=== PATIENT | female | born 1990 | race Caucasian/White ===

== ENCOUNTER 2016-12-12 15:16 | Emergency (ER) | payer OTHER ==
[2016-12-12 16:38] LABS: BASOPHIL % 0.4 % (0-2); PLATELET COUNT 143 x10^3mcL (130-400)
[2016-12-12 16:39] LABS: RED CELL DISTRIBUTION WIDTH 14.8 % (11.5-14.5)
[2016-12-12 16:41] LABS: CALCIUM 8.6 mg/dL (8.5-10.1); CARBON DIOXIDE 29.7 mmol/L (21-32); CHLORIDE SERUM 106 mmol/L (98-107); CREATININE SERUM 0.6 mg/dL (0.6-1.0); GFR1 > 60 mL/min; GLUCOSE SERUM 95 mg/dL (74-106); POTASSIUM SERUM 3.8 mmol/L (3.5-5.1); SODIUM SERUM 142 mmol/L (136-145)
[2016-12-12 16:55] LABS: ALBUMIN 3.8 g/dL (3.4-5.0); ALKALINE PHOSPHATASE 91 U/L (46-116); ALT/SGPT 20 U/L (14-59); AST/SGOT 16 U/L (15-37); BILIRUBIN TOTAL 0.23 mg/dL (0.20-1.00); FREE T4 1.02 ng/dL (0.76-1.46); TOTAL PROTEIN, SERUM 7.2 g/dL (6.4-8.2)
[2016-12-12 17:03] LABS: AMPHETAMINE QUAL UR NONE DETECTED (NEG <=1000)
[2016-12-12 17:30] VITALS: BP 106/75
== END 2016-12-12 17:30 | disposition home or self-care (01) ==
LOC: ED 15:16
PROVIDERS: Emergency Medicine
DX: D64.9 Anemia, unspecified (principal); R53.83 Other fatigue; N93.9 Abnormal uterine and vaginal bleeding, unspecified; R63.4 Abnormal weight loss; E07.9 Disorder of thyroid, unspecified
CPT/HCPCS: 36415; 84439

== ENCOUNTER 2018-05-07 21:12 | Emergency (ER) | payer MEDICAID ==
[~2018-05-07] VITALS: Ht 162.6 cm; Wt 69.9 kg
[2018-05-07 21:18] VITALS: Ht 162.6 cm; Wt 69.9 kg
[2018-05-07 21:54] VITALS: BP 121/46
== END 2018-05-07 21:54 | disposition home or self-care (01) ==
LOC: ED 21:12
DX: G62.9 Polyneuropathy, unspecified (principal); E03.9 Hypothyroidism, unspecified

== ENCOUNTER 2018-09-20 20:18 | Emergency (ER) | payer MEDICAID ==
[~2018-09-20] VITALS: Ht 162.6 cm; Wt 69.4 kg
[2018-09-20 20:40] VITALS: Ht 162.6 cm; Wt 69.4 kg
[2018-09-20 21:13] LABS: BASOPHIL % 0.5 % (0-2); PLATELET COUNT 150 x10^3mcL (130-400); RED CELL DISTRIBUTION WIDTH 13.6 % (11.5-14.5)
[2018-09-20 21:24] LABS: CALCIUM 8.8 mg/dL (8.5-10.1); CHLORIDE SERUM 102 mmol/L (98-107); CREATININE SERUM 0.6 mg/dL (0.6-1.0); GFR1 > 60 mL/min; GLUCOSE SERUM 92 mg/dL (74-106); POTASSIUM SERUM 3.8 mmol/L (3.5-5.1); SODIUM SERUM 138 mmol/L (136-145)
[2018-09-20 21:28] LABS: ALBUMIN 3.8 g/dL (3.4-5.0); ALKALINE PHOSPHATASE 91 U/L (46-116); ALT/SGPT 26 U/L (14-59); AST/SGOT 18 U/L (15-37); BILIRUBIN TOTAL 0.2 mg/dL (0.20-1.00); TOTAL PROTEIN, SERUM 7.5 g/dL (6.4-8.2)
[2018-09-20 23:17] VITALS: BP 102/60
== END 2018-09-20 23:17 | disposition home or self-care (01) ==
LOC: ED 20:18
PROVIDERS: Emergency Medicine
DX: R10.30 Lower abdominal pain, unspecified (principal); E05.90 Thyrotoxicosis, unspecified without thyrotoxic crisis or storm
CPT/HCPCS: J1885; J7030; Q0092

== ENCOUNTER 2019-03-11 20:42 | Emergency (ER) | payer MEDICAID ==
[~2019-03-11] VITALS: Ht 162.6 cm; Wt 69.9 kg
[2019-03-11 20:47] VITALS: Ht 162.6 cm; Wt 69.9 kg
[2019-03-11 22:32] LABS: microscopic required? NO
[2019-03-11 22:38] LABS: urine erythrocyte NEGATIVE (NEGATIVE)
[2019-03-11 22:43] LABS: BASOPHIL % 0.3 % (0-2); PLATELET COUNT 168 x10^3mcL (130-400); RED CELL DISTRIBUTION WIDTH 12.9 % (11.5-14.5)
[2019-03-11 22:52] LABS: AMPHETAMINE QUAL UR NONE DETECTED (See below)
[2019-03-11 23:02] LABS: CALCIUM 7.9 mg/dL (8.5-10.1); CARBON DIOXIDE 26.6 mmol/L (21-32); CHLORIDE SERUM 109 mmol/L (98-107); CREATININE SERUM 0.7 mg/dL (0.6-1.0); GFR1 > 60 mL/min; GLUCOSE SERUM 91 mg/dL (74-106); POTASSIUM SERUM 3.4 mmol/L (3.5-5.1); SODIUM SERUM 144 mmol/L (136-145)
[2019-03-11 23:06] LABS: ALBUMIN 3.5 g/dL (3.4-5.0); ALKALINE PHOSPHATASE 85 U/L (46-116); ALT/SGPT 16 U/L (14-59); AST/SGOT 15 U/L (15-37); BILIRUBIN TOTAL 0.3 mg/dL (0.20-1.00); HDL CHOLESTEROL 40 mg/dL (40-60); LIPASE 150 IU/L (73-393); TOTAL PROTEIN, SERUM 6.9 g/dL (6.4-8.2); TRIGLYCERIDES 57 mg/dL (<150)
[2019-03-11 23:07] LABS: CHOLESTEROL 113 mg/dL (<200); CHOLESTEROL/HDL RATIO 2.8
[2019-03-11 23:23] LABS: FREE T4 1.59 ng/dL (0.76-1.46); FREE THYROXINE INDEX 3.9 ug/dL (1.4-4.5); T4(THYROXINE) 10.6 ug/dL (4.7-13.3)
[2019-03-11 23:53] LABS: T3 TOTAL 1.07 ng/mL
[2019-03-11 23:57] VITALS: BP 95/55
== END 2019-03-11 23:57 | disposition home or self-care (01) ==
LOC: ED 20:42
PROVIDERS: Specialist
DX: R00.2 Palpitations (principal); E87.6 Hypokalemia; E05.90 Thyrotoxicosis, unspecified without thyrotoxic crisis or storm; Z98.890 Other specified postprocedural states
CPT/HCPCS: 36415; 83880; 84439; Q0092